=== PATIENT | male | born 1955 | race Caucasian/White ===

== ENCOUNTER → 2017-01-05 | Day surgery (SDC) | payer OTHER ==
[~2017-01-05] VITALS: Ht 182.9 cm; Wt 80.7 kg
== END | disposition home or self-care (01) ==
LOC: FAS 06:00
DX: G56.02 Carpal tunnel syndrome, left upper limb (principal)
CPT/HCPCS: J1885; J2405; J2704; J3010

== ENCOUNTER → 2021-09-22 | Day surgery (SDC) | payer OTHER ==
[~2021-09-22] VITALS: Ht 182.9 cm; Wt 79.2 kg
[~2021-09-22] MED LIST: ASCORBIC ACID500 MG PO; ASPIRIN EC81 MG PO; ECHINACEA400 MG PO; MAG-OXIDE 400M400 MG PO; VITAMIN B-121000 MC1 PO; VITAMIN D3250 MC1 PO; ZINC50 M1 PO
[2021-09-22 11:51] LABS: HCT 41.5 % (42.0-52.0); HGB 13.9 g/dl (13.2-18.0); MCH 32.3 pg (25.0-31.0); MCHC 33.5 g/dL (32.0-36.0); MCV 96.5 fL (78.0-100.0); MPV 9.9 fL (6.0-9.5); RBC 4.3 M/uL (4.70-6.00); RDW 13.7 % (11.5-14.0); WBC 8.2 K/uL (4.0-10.5)
== END | disposition home or self-care (01) ==
LOC: FAS 09-08 12:30
PROVIDERS: Legal Medicine
DX: M75.102 Unspecified rotator cuff tear or rupture of left shoulder, not specified as traumatic (principal); M19.012 Primary osteoarthritis, left shoulder; M75.42 Impingement syndrome of left shoulder; G89.18 Other acute postprocedural pain; Z79.82 Long term (current) use of aspirin; Z79.899 Other long term (current) drug therapy
CPT/HCPCS: 36415; C1713; J0690; J1885; J2250; J2405; J2704; J2795; J3010; J7120